=== PATIENT | female | born 1990 | race Two or more races ===

== ENCOUNTER 2018-12-12 00:39 | Emergency (ER) | payer OTHER ==
[2018-12-12 00:48] VITALS: BMI 28.3
[2018-12-12] MEDS ORDERED: SODIUM CHLORIDE 1,000 ML IV STA (01:14)
--- NOTE | 2018-12-12 01:22 | PDOC ---
History of Present Illness - General Chief Complaint: Lightheaded Stated Complaint: DIZZINESS Time Seen by Provider: 12/12/18 01:06 History Source: Patient Exam Limitations: No Limitations - History of Present Illness Initial Comments: 12/12/18 01:16 28 yo female with 1 miscarriage currently 22 weeks presents to the ED for 2 days of F/C, diffuse body aches and MORALES. 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 Pt denies recent travel, cough, congestion, sinus pain, ear pain, CP, SOB, abdominal pain. Last US 2 weeks ago (OB in [facility]) reported as normal as per pt. Pt tried advil yesterday for MORALES yesterday with some relief and at 9 pm took 1000mg Tylenol but continues to complain of chills and MORALES. Past History - Past Medical History Allergies/Adverse Reactions: Allergies Allergy/AdvReac Type Severity Reaction Status Date / Time No Known Allergies Allergy Verified 12/12/18 00:46 Home Medications: Ambulatory Orders Cephalexin [Keflex] 500 mg PO BID 5 Days #10 capsule 12/12/18 - Suicide/Smoking/Psychosocial Hx Smoking History: Never smoked Have you smoked in the past 12 months: No Information on smoking cessation initiated: No Hx Alcohol Use: No Drug/Substance Use Hx: No Review of Systems - Review of Systems Constitutional: Yes: Chills, Fever, Other (diffuse body aches) HEENTM: No: Ear Discharge, Nose Congestion Respiratory: No: Cough, Shortness of Breath, Wheezing Cardiac (ROS): No: Chest Pain, Edema, Irregular Heart Rate ABD/GI: No: Constipated, Diarrhea, Nausea, Vomiting, Abdominal cramping : No: Burning, Dysuria Musculoskeletal: No: Back Pain Neurological: Yes: Headache. No: Numbness, Paresthesia, Weakness, Unsteady Gait , Dizziness *Physical Exam - Vital Signs Last Vital Signs Temp Pulse Resp BP Pulse Ox 99.0 F 107 H 20 120/74 100 12/12/18 00:46 12/12/18 00:46 12/12/18 00:46 12/12/18 00:46 12/12/18 00:46 - Physical Exam General Appearance: Yes: Nourished, Appropriately Dressed. No: Apparent Distress HEENT: positive: EOMI Neck: positive: Supple. negative: Carotid bruit Respiratory/Chest: positive: Lungs Clear, Normal Breath Sounds. negative: Respiratory Distress, Rapid RR, Crackles, Rales, Rhonchi, Wheezing Cardiovascular: positive: Regular Rhythm, S1, S2, Tachycardia. negative: Edema , JVD, Murmur Vascular Pulses: Dorsalis-Pedis (R): 4+, Doralis-Pedis (L): 4+ Gastrointestinal/Abdominal: positive: Flat, Soft Musculoskeletal: negative: CVA Tenderness Integumentary: positive: Normal Color, Dry, Warm. negative: Cyanotic Neurologic: positive: Fully Oriented, Alert, Normal Mood/Affect, Normal Response , Motor Strength 10/10 ED Treatment Course - LABORATORY CBC & Chemistry Diagram: 12/12/18 01:49 12/12/18 01:49 Medical Decision Making - Medical Decision Making 12/12/18 02:27 28 yo female with 1 miscarriage currently 22 weeks presents to the ED for 2 days of F/C, diffuse body aches and MORALES. 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 Pt denies recent travel, cough, congestion, sinus pain, ear pain, CP, SOB, abdominal pain. Last US 2 weeks ago (OB in [facility]) reported as normal as per pt. Pt tried advil yesterday for MORALES yesterday with some relief and at 9 pm took 1000mg Tylenol but continues to complain of chills and MORALES. Vitals WNL pt shivering while in bed, AOX4, non toxic appearing Will give fluids, no tylenol for now since she took 1000 mg 9pm and is 22 weeks UA positive for UTI, with treat with Keflex Denies CVA tenderness, abdominal pain, N/V. Labs WNL 12/12/18 04:34 Pts HR 98, states she feels much better after fluids and Tylenol Pt safe for DC home with PCP f/u and oral antibiotics Pt will be DC to OB for monitoring and head straight home if no concerns on exam Pt understands and agrees with plan *DC/Admit/Observation/Transfer Diagnosis at time of Disposition: UTI (urinary tract infection) - Discharge Dispostion Disposition: HOME Condition at time of disposition: Stable Decision to Admit order: No - Prescriptions Prescriptions: Cephalexin [Keflex] 500 mg PO BID 5 Days #10 capsule - Referrals - Patient Instructions Printed Discharge Instructions: DI for Urinary Tract Infection (UTI) Additional Instructions: Please see your primary doctor within the next 48 hours. Take the antibiotic as prescribed to treat your UTI. Head straight to the OB floor for monitoring. Return to the ER for new or concerning symptoms including but not limited to: high fevers, inability to eat or drink, back pain, abdominal pain. Thank you - Post Discharge Activity
[2018-12-12 01:55] LABS: BASO % 0.4 % (0-2.0); EOS % 0.1 % (0-4.5); HEMATOCRIT 32.2 % (32.4-45.2); HEMOGLOBIN 10.7 GM/dL (10.7-15.3); LYMPH % 8.7 % (8-40); MCH 29.1 pg (25.7-33.7); MCHC 33.2 g/dl (32.0-36.0); MEAN CELL VOLUME 87.6 fl (80-96); MEAN PLT VOLUME 9.5 fl (7.5-11.1); MONO % 10.6 % (3.8-10.2); NEUT % 80.2 % (42.8-82.8); PLATELET COUNT 183 K/MM3 (134-434); RBC 3.67 M/mm3 (3.60-5.2); RDW 12.7 % (11.6-15.6); WHITE BLOOD COUNT 8.3 K/mm3 (4.0-10.0)
[2018-12-12] MEDS ORDERED: METOCLOPRAMIDE HCL INJECTION 10 MG/2 ML VIAL IVPUSH ONE (02:06)
[2018-12-12 02:19] LABS: ALBUMIN 3.1 g/dl (3.4-5.0); BILIRUBIN,TOTAL 0.2 mg/dL (0.2-1); BLOOD UREA NITROGEN 12.2 mg/dL (7-18); CALCIUM 9.1 mg/dL (8.5-10.1); CREATININE 0.8 mg/dL (0.55-1.3); POTASSIUM 3.5 mmol/L (3.5-5.1); TOT PROT 7.6 g/dl (6.4-8.2)
--- NOTE | 2018-12-12 02:30 | PDOC ---
Attending Attestation - Resident Resident Name: Jeremy Martinez - ED Attending Attestation I have performed the following: I have examined & evaluated the patient, The case was reviewed & discussed with the resident, I agree w/resident's findings & plan, Exceptions are as noted - HPI HPI: 12/12/18 02:26 28 F , @ 22 weeks, presenting with fevers, chills, bodyaches, and headache. Pt states that her symptoms began 2 days ago. Denies Cp/SOB. Denies abdominal pain. Denies N/V/D. Denies neck pain/stiffness. Took tylenol this evening with minimal relief. - Physicial Exam PE: 12/12/18 02:29 "GENERAL: Awake, alert, and fully oriented, in no acute distress. HEAD: No signs of trauma EYES: PERRLA, EOMI, sclera anicteric, conjunctiva clear ENT: Auricles normal inspection, hearing grossly normal, nares patent, oropharynx clear without exudates. Moist mucosa NECK: Nontender, no stepoffs, Normal ROM, supple, no lymphadenopathy, JVD, or masses LUNGS: Breath sounds equal, clear to auscultation bilaterally. No wheezes, and no crackles HEART: Regular rate and rhythm, normal S1 and S2, no murmurs, rubs or gallops ABDOMEN: Soft, nontender, normoactive bowel sounds. No guarding, no rebound. No masses EXTREMITIES: Normal range of motion, no edema. No clubbing or cyanosis. No cords, erythema, or tenderness NEUROLOGICAL: Cranial nerves II through XII intact. 5/5 strength and sensation in all extremities, Normal speech, normal gait, normal cerebellar function SKIN: Warm, Dry, normal turgor, no rashes or lesions noted. - Medical Decision Making 12/12/18 02:30 28 F with flu-like symptoms - MORALES, bodyaches, chills @ 22 weeks . No evidence of meningitis on exam. Clear lungs. Nontender abdomen. Suspect viral infection. - Labs, flu swab - IVF, reglan for headache 12/12/18 04:51 Labs notable for UTI Will tx w keflex Repeat HR 98 Pt is well appearing, with normal vitals. Clinically stable for DC at this time. I discussed the physical exam findings, ancillary test results and final diagnoses with the patient. I answered all of the patient's questions. The patient was satisfied with the care received and felt comfortable with the discharge plan and treatment plan. The patient agrees to follow up with the primary care physician within 24-72 hours.
[2018-12-12] MEDS ORDERED: METOCLOPRAMIDE HCL INJECTION 10 MG/2 ML VIAL ONE (02:38)
[2018-12-12 03:36] LABS: EPI CELLS 7.9 /HPF (0-5/HPF); HYALINE CASTS 3 /lpf (0-8); URINE APPEARANCE CLOUDY; URINE BACTERIA 1065.5 /hpf (NEGATIVE); URINE BILIRUBIN NEGATIVE (NEGATIVE); URINE COLOR YELLOW; URINE GLUCOSE (UA) NEGATIVE (NEGATIVE); URINE KETONE NEGATIVE (NEGATIVE); URINE LEUK ESTERASE 2+ (NEGATIVE); URINE NITRITE NEGATIVE (NEGATIVE); URINE PROTEIN TRACE (NEGATIVE); URINE RBC 2 /hpf (0-4); URINE WBC 24 /hpf (0-5)
[2018-12-12] MEDS ORDERED: ACETAMINOPHEN 1000 MG/100 ML VIAL (NON FORMULARY) IVPB ONE (03:43)
[2018-12-12] MEDS ORDERED: ACETAMINOPHEN INJECTION 100 ML IVPB ONE (03:44)
[2018-12-12] MEDS ORDERED: CEPHALEXIN MONOHYDRATE 500 MG CAPSULE (UD) PO ONE (03:48)
[2018-12-12] MEDS ORDERED: CEPHALEXIN MONOHYDRATE 500 MG CAPSULE (UD) ONE (03:57)
[2018-12-12 05:40] VITALS: BP 113/53; PULSE 94; TEMP 99.9
== END 2018-12-12 05:46 | disposition home or self-care (01) ==
LOC: JER 00:39
PROC: 3E033NZ Introduction of Analgesics, Hypnotics, Sedatives into Peripheral Vein, Percutaneous Approach (ICD-10-PCS; principal; 2018-12-12)
PROC: 3E033GC Introduction of Other Therapeutic Substance into Peripheral Vein, Percutaneous Approach (ICD-10-PCS; 2018-12-12)
PROC: 3E0337Z Introduction of Electrolytic and Water Balance Substance into Peripheral Vein, Percutaneous Approach (ICD-10-PCS; 2018-12-12)
DX: O26.892 Other specified pregnancy related conditions, second trimester (principal); Z3A.22 22 weeks gestation of pregnancy; N39.0 Urinary tract infection, site not specified
CPT/HCPCS: 36415; 80053; 81003; 85025; 87086; 87186; 87804; 99283-25; J0131; J7030